=== PATIENT | female | born 1965 | race Hispanic/Latino ===

== ENCOUNTER 2021-04-20 06:49 | Emergency (ER) | payer MEDICARE, OTHER ==
[2021-04-20] MEDS ORDERED: Ondansetron PF 4 MG/2 ML Vial ONE (07:44)
[2021-04-20] MEDS ORDERED: Morphine 4 MG/ML VIAL ONE ×2 (07:44)
[2021-04-20 07:51] LABS: #Eosinphils 0.4 thou/uL (0.0-0.7); #Lymphocytes 1.4 thou/uL (1.20-3.40); #Monocytes 0.4 thou/uL (0.11-0.59); #Neutrophils 3.7 thou/uL (1.40-6.50); %Basophils 0.7 % (0.0-1.0); %Monocytes 6.8 % (0.0-10.0); %Neutrophils 61.5 % (42.0-75.0); Hemoglobin 10.7 g/dL (12.0-16.0); Mean Corpuscular HGB CONC 32.8 g/dL (32.0-36.0); Mean Corpuscular Hemoglobin 32.6 pg (27.0-31.0); Mean Corpuscular Volume 99.1 fL (78.0-98.0); Mean Platelet Volume 7.1 fL (7.4-10.4); Platelet Count 259 thou/uL (130-400); RBC Distribution Width 13.7 % (11.5-14.5)
[2021-04-20 08:12] LABS: ALT (SGPT) 13 U/L (8-55); AST (SGOT) 22 U/L (5-34); Albumin 3.3 g/dL (3.5-5.0); Alkaline Phosphatase 370 U/L (40-110); Anion Gap 15 mmol/L (10-20); BUN (Urea Nitrogen) 20 mg/dL (9.8-20.1); Bilirubin, Total 0.9 mg/dL (0.2-1.2); Calc. Creatinine Clearance 0 mL/min (70-130); Carbon Dioxide 29 mmol/L (22-29); Chloride 95 mmol/L (98-107); Globulin 5.8 g/dL (2.4-3.5); Glucose 216 mg/dL (70-105); Magnesium 2.3 mg/dL (1.6-2.6); Phosphorus 6.3 mg/dL (2.3-4.7); Potassium 4.2 mmol/L (3.5-5.1); Protein, Total 9.1 g/dL (6.0-8.3); Sodium 135 mmol/L (136-145)
== END 2021-04-20 09:09 | disposition home or self-care (01) ==
LOC: ERS 06:49
DX: B00.9 Herpesviral infection, unspecified (principal); E11.9 Type 2 diabetes mellitus without complications; I12.0 Hypertensive chronic kidney disease with stage 5 chronic kidney disease or end stage renal disease; N18.6 End stage renal disease; Z99.2 Dependence on renal dialysis; E78.00 Pure hypercholesterolemia, unspecified; Z79.899 Other long term (current) drug therapy
CPT/HCPCS: 71045; 80053; 83735; 84100; 85025; 96374; 96375; J2270; J2405

== ENCOUNTER 2021-04-26 23:55 | Inpatient (IN) | payer MEDICARE, MEDICAID ==
[2021-04-27 02:13] LABS: Troponin I Less than 0.010 ng/mL (< 0.028)
[2021-04-27] MEDS ORDERED: Dextrose 5% in Water 1,000 ML IV PRN (05:27)
[2021-04-27] MEDS ORDERED: Dextrose 50% Abboject 50 ML SYRINGE SLOW IVP PRN (05:27)
[2021-04-27 05:43] LABS: Troponin I 0.012 ng/mL (< 0.028)
[2021-04-27] MEDS ORDERED: Labetalol HCl 100 MG/20 ML VIAL ONE (05:44)
[2021-04-27] MEDS ORDERED: Labetalol HCl 100 MG/20 ML VIAL SLOW IVP SCH (05:45)
[2021-04-27] MEDS ORDERED: Acetaminophen 325 MG TAB PO PRN (05:56)
[2021-04-27 07:02] LABS: Free T4 (Free Thyroxine) 0.94 ng/dL (0.70-1.48)
[2021-04-27] MEDS: Lidocaine 5% Patch TD SCH (08:52)
[2021-04-27] MEDS ORDERED: Amlodipine 5 MG TAB ONE (10:49)
[2021-04-27] MEDS ORDERED: Amlodipine 10 MG TAB PO SCH (11:15)
[2021-04-27] MEDS ORDERED: Carvedilol 6.25 MG TAB PO SCH (11:15)
[2021-04-27 12:53] LABS: SARS-CoV-2 PCR by NAA Not Detected (NotDetected)
[2021-04-27] MEDS: Gabapentin 100 MG CAP PO SCH ×2 (16:13→20:50)
[2021-04-27] MEDS: hydrALAZINE 25 MG TAB PO SCH ×2 (16:34→20:50)
[2021-04-27 16:42] LABS: Hemoglobin A1c 5.8 % (4.0-6.0)
[2021-04-27 17:35] LABS: Vitamin D, 25 Hydroxy 6.4 ng/ml (> 30.0)
[2021-04-27] MEDS: hydrALAZINE 20 MG/ML VIAL SLOW IVP PRN (20:45)
[2021-04-27] MEDS: Carvedilol 6.25 MG TAB PO SCH (20:49)
[2021-04-27] MEDS: Transdermal Patch Removal TOP SCH (20:50)
[2021-04-28] MEDS: hydrALAZINE 20 MG/ML VIAL SLOW IVP PRN ×2 (00:18→08:32)
[2021-04-28 05:33] LABS: Cardiac Risk 4.1 (Less than 4.5)
[2021-04-28] MEDS ORDERED: Dextrose 5% in Water 1,000 ML IV SCH (06:30)
[2021-04-28] MEDS: Lidocaine 5% Patch TD SCH (08:32)
[2021-04-28] MEDS ORDERED: Prevnar 13-Val Conj/PF 0.5 ML SYRINGE IM ONE (09:00)
[2021-04-28] MEDS ORDERED: Dextrose 50% Abboject 50 ML SYRINGE SLOW IVP PRN (09:01)
[2021-04-28] MEDS ORDERED: Dextrose 5% in Water 1,000 ML IV PRN (09:01)
[2021-04-28] MEDS ORDERED: HumaLOG 300 UNITS/3 ML VIAL SC PRN (09:01)
[2021-04-28] MEDS: Carvedilol 6.25 MG TAB PO SCH ×2 (10:53→21:25)
[2021-04-28] MEDS: Amlodipine 10 MG TAB PO SCH (10:53)
[2021-04-28] MEDS: Sevelamer Carbonate 800 MG TAB PO SCH ×2 (10:53→16:19)
[2021-04-28] MEDS: hydrALAZINE 25 MG TAB PO SCH ×3 (10:53→21:25)
[2021-04-28] MEDS: ALPRAZolam 0.5 MG TAB PO PRN (10:53)
[2021-04-28] MEDS: Gabapentin 100 MG CAP PO SCH ×3 (10:54→21:26)
[2021-04-28] MEDS ORDERED: hydrALAZINE 25 MG TAB PO SCH ×2 (13:00→15:00)
[2021-04-28] MEDS ORDERED: NIFEdipine XL 60 MG TAB PO SCH (21:00)
[2021-04-28] MEDS: Transdermal Patch Removal TOP SCH (21:26)
[2021-04-29 11:20] LABS: #Basophils 0.1 thou/uL (0.0-0.2); #Eosinphils 0.3 thou/uL (0.0-0.7); #Lymphocytes 1.4 thou/uL (1.20-3.40); #Monocytes 0.4 thou/uL (0.11-0.59); #Neutrophils 2.9 thou/uL (1.40-6.50); %Basophils 1.2 % (0.0-1.0); %Eosinophils 6.7 % (0.0-10.0); %Lymphocytes 27.4 % (21.0-51.0); %Monocytes 6.9 % (0.0-10.0); %Neutrophils 57.8 % (42.0-75.0); Hemoglobin 10.3 g/dL (12.0-16.0); Mean Corpuscular Hemoglobin 31.6 pg (27.0-31.0); Mean Corpuscular Volume 98.8 fL (78.0-98.0); Mean Platelet Volume 7.1 fL (7.4-10.4); Platelet Count 217 thou/uL (130-400); RBC Distribution Width 15.2 % (11.5-14.5); Red Blood Cell (RBC) Count 3.27 mill/uL (4.20-5.40); White Blood Cell (WBC) Count 5.1 thou/uL (4.8-10.8)
[2021-04-29 11:27] LABS: Anion Gap 15 mmol/L (10-20); BUN (Urea Nitrogen) 8 mg/dL (9.8-20.1); Calc. Creatinine Clearance 24 mL/min (70-130); Calcium 8.8 mg/dL (7.8-10.44); Carbon Dioxide 27 mmol/L (22-29); Chloride 100 mmol/L (98-107); Glucose 88 mg/dL (70-105); Potassium 3.4 mmol/L (3.5-5.1); Sodium 139 mmol/L (136-145)
[2021-04-29] MEDS: HYDROcodone/Acetaminophen 5/325 mg Tablet PO PRN ×2 (11:37→18:53)
[2021-04-29] MEDS: Sevelamer Carbonate 800 MG TAB PO SCH ×3 (12:58→17:05)
[2021-04-29] MEDS: hydrALAZINE 25 MG TAB PO SCH ×3 (12:58→21:09)
[2021-04-29] MEDS: Gabapentin 100 MG CAP PO SCH (13:05)
[2021-04-29] MEDS: Amlodipine 10 MG TAB PO SCH (13:08)
[2021-04-29] MEDS: valACYclovir 500 MG TAB PO SCH ×2 (13:09→21:10)
[2021-04-29] MEDS: NIFEdipine XL 60 MG TAB PO SCH (13:09)
[2021-04-29] MEDS: Carvedilol 6.25 MG TAB PO SCH ×2 (13:09→21:10)
[2021-04-29] MEDS: Lidocaine 5% Patch TD SCH (13:11)
[2021-04-29] MEDS: Rifaximin 550 MG TAB PO SCH ×2 (15:33→21:10)
[2021-04-29] MEDS: Gabapentin 300 MG CAP PO SCH ×2 (15:33→21:10)
[2021-04-29] MEDS: ALPRAZolam 0.5 MG TAB PO PRN (21:11)
[2021-04-29] MEDS: Transdermal Patch Removal TOP SCH (21:16)
[2021-04-30] MEDS: HYDROcodone/Acetaminophen 5/325 mg Tablet PO PRN ×2 (01:05→20:45)
[2021-04-30] MEDS: valACYclovir 500 MG TAB PO SCH ×3 (04:10→20:43)
[2021-04-30] MEDS: Sevelamer Carbonate 800 MG TAB PO SCH ×3 (09:42→18:43)
[2021-04-30] MEDS: hydrALAZINE 25 MG TAB PO SCH ×4 (09:42→20:44)
[2021-04-30] MEDS: Losartan 25 MG TAB PO SCH ×2 (09:42→10:52)
[2021-04-30] MEDS: Carvedilol 6.25 MG TAB PO SCH ×3 (09:43→20:43)
[2021-04-30] MEDS: Furosemide 80 MG TAB PO SCH ×2 (09:43→10:51)
[2021-04-30] MEDS: Rifaximin 550 MG TAB PO SCH ×3 (09:44→20:45)
[2021-04-30] MEDS: Gabapentin 300 MG CAP PO SCH (09:44)
[2021-04-30] MEDS: NIFEdipine XL 60 MG TAB PO SCH ×2 (09:45→10:52)
[2021-04-30] MEDS: Amlodipine 10 MG TAB PO SCH ×2 (09:45→10:50)
[2021-04-30] MEDS: Lidocaine 5% Patch TD SCH (10:00)
[2021-04-30] MEDS ORDERED: Folic Acid 1 MG TAB PO SCH (19:30)
[2021-04-30] MEDS: Transdermal Patch Removal TOP SCH (20:45)
[2021-04-30] MEDS: ALPRAZolam 0.5 MG TAB PO PRN (20:45)
[2021-05-01] MEDS: valACYclovir 500 MG TAB PO SCH ×3 (04:43→21:38)
[2021-05-01 06:35] LABS: Anion Gap 17 mmol/L (10-20); BUN (Urea Nitrogen) 26 mg/dL (9.8-20.1); Calc. Creatinine Clearance 13 mL/min (70-130); Calcium 8.3 mg/dL (7.8-10.44); Carbon Dioxide 22 mmol/L (22-29); Chloride 98 mmol/L (98-107); Glucose 178 mg/dL (70-105); Potassium 4.4 mmol/L (3.5-5.1); Sodium 133 mmol/L (136-145)
[2021-05-01] MEDS: hydrALAZINE 25 MG TAB PO SCH (09:41)
[2021-05-01] MEDS: Carvedilol 6.25 MG TAB PO SCH (09:41)
[2021-05-01] MEDS: Rifaximin 550 MG TAB PO SCH ×3 (10:12→20:07)
[2021-05-01] MEDS: Lidocaine 5% Patch TD SCH (10:13)
[2021-05-01] MEDS: Sevelamer Carbonate 800 MG TAB PO SCH ×3 (10:13→18:30)
[2021-05-01] MEDS: Folic Acid 1 MG TAB PO SCH (10:13)
[2021-05-01 12:01] LABS: Hemoglobin 10.4 g/dL (12.0-16.0); Mean Corpuscular HGB CONC 33.6 g/dL (32.0-36.0); Mean Corpuscular Hemoglobin 32.9 pg (27.0-31.0); Mean Corpuscular Volume 97.8 fL (78.0-98.0); Mean Platelet Volume 7.1 fL (7.4-10.4); Platelet Count 267 thou/uL (130-400); RBC Distribution Width 15.5 % (11.5-14.5); Red Blood Cell (RBC) Count 3.16 mill/uL (4.20-5.40); White Blood Cell (WBC) Count 6.1 thou/uL (4.8-10.8)
[2021-05-01] MEDS: HYDROcodone/Acetaminophen 5/325 mg Tablet PO PRN (18:20)
[2021-05-01] MEDS: Transdermal Patch Removal TOP SCH (20:11)
[2021-05-01] MEDS: hydrALAZINE 20 MG/ML VIAL SLOW IVP PRN (20:14)
[2021-05-01] MEDS ORDERED: Morphine 2 MG/ML VIAL SLOW IVP SCH (22:15)
[2021-05-02 05:54] LABS: Anion Gap 13 mmol/L (10-20); BUN (Urea Nitrogen) 36 mg/dL (9.8-20.1); Calc. Creatinine Clearance 11 mL/min (70-130); Calcium 8.7 mg/dL (7.8-10.44); Carbon Dioxide 25 mmol/L (22-29); Chloride 100 mmol/L (98-107); Glucose 114 mg/dL (70-105); Potassium 4.8 mmol/L (3.5-5.1); Sodium 133 mmol/L (136-145)
[2021-05-02] MEDS: valACYclovir 500 MG TAB PO SCH ×3 (06:15→21:44)
[2021-05-02] MEDS: HYDROcodone/Acetaminophen 5/325 mg Tablet PO PRN ×2 (06:17→21:44)
[2021-05-02] MEDS: Folic Acid 1 MG TAB PO SCH (08:01)
[2021-05-02] MEDS: Sevelamer Carbonate 800 MG TAB PO SCH ×3 (08:01→20:03)
[2021-05-02] MEDS: Rifaximin 550 MG TAB PO SCH ×3 (08:01→21:44)
[2021-05-02] MEDS: Lidocaine 5% Patch TD SCH (08:04)
[2021-05-02] MEDS: hydrALAZINE 20 MG/ML VIAL SLOW IVP PRN ×3 (11:51→21:29)
[2021-05-02] MEDS ORDERED: Aspirin 325 MG TAB PO SCH (14:15)
[2021-05-02] MEDS: Atorvastatin Calcium 20 MG TAB PO SCH (21:44)
[2021-05-02] MEDS: Transdermal Patch Removal TOP SCH (21:45)
[2021-05-03] MEDS ORDERED: Morphine 2 MG/ML VIAL SLOW IVP SCH (00:15)
[2021-05-03] MEDS: hydrALAZINE 20 MG/ML VIAL SLOW IVP PRN ×4 (01:43→18:48)
[2021-05-03] MEDS: diphenhydrAMINE 25 MG CAP PO PRN ×2 (02:52→16:30)
[2021-05-03] MEDS ORDERED: Labetalol HCl 100 MG/20 ML VIAL ONE (05:52)
[2021-05-03] MEDS: Morphine 2 MG/ML VIAL SLOW IVP PRN ×2 (07:03→13:44)
[2021-05-03] MEDS ORDERED: hydrALAZINE 25 MG TAB PO SCH (09:00)
[2021-05-03] MEDS: Folic Acid 1 MG TAB PO SCH (09:45)
[2021-05-03] MEDS: Aspirin 81 mg Enteric Coated Tablet PO SCH (09:45)
[2021-05-03] MEDS: Rifaximin 550 MG TAB PO SCH ×3 (09:45→20:02)
[2021-05-03] MEDS: Lidocaine 5% Patch TD SCH (09:46)
[2021-05-03] MEDS: valACYclovir 500 MG TAB PO SCH (09:46)
[2021-05-03] MEDS: Sevelamer Carbonate 800 MG TAB PO SCH ×3 (09:54→16:23)
[2021-05-03] MEDS ORDERED: NIFEdipine XL 60 MG TAB PO SCH (13:00)
[2021-05-03] MEDS ORDERED: Pregabalin 75 MG CAP PO SCH (14:15)
[2021-05-03] MEDS ORDERED: Pregabalin 25 MG CAP PO SCH (14:45)
[2021-05-03] MEDS: hydrALAZINE 25 MG TAB PO SCH ×2 (14:57→20:01)
[2021-05-03] MEDS ORDERED: Labetalol HCl 100 MG/20 ML VIAL SLOW IVP PRN (15:34)
[2021-05-03] MEDS ORDERED: Carvedilol 3.125 MG TAB PO SCH (17:30)
[2021-05-03] MEDS: Atorvastatin Calcium 20 MG TAB PO SCH (20:01)
[2021-05-03] MEDS: Pregabalin 25 MG CAP PO SCH (20:02)
[2021-05-03] MEDS: Transdermal Patch Removal TOP SCH (20:03)
[2021-05-03] MEDS: Fentanyl 100 MCG/2 ML VIAL SLOW IVP PRN (20:05)
[2021-05-04] MEDS: Fentanyl 100 MCG/2 ML VIAL SLOW IVP PRN ×3 (07:32→20:06)
[2021-05-04] MEDS: Lidocaine 5% Patch TD SCH (07:32)
[2021-05-04] MEDS: Rifaximin 550 MG TAB PO SCH ×3 (07:58→20:06)
[2021-05-04] MEDS: hydrALAZINE 25 MG TAB PO SCH ×3 (07:58→20:06)
[2021-05-04] MEDS: Pregabalin 25 MG CAP PO SCH (07:58)
[2021-05-04] MEDS: Carvedilol 3.125 MG TAB PO SCH ×2 (07:58→20:06)
[2021-05-04] MEDS: Sevelamer Carbonate 800 MG TAB PO SCH ×3 (07:58→15:53)
[2021-05-04 09:00] LABS: Hemoglobin 9.7 g/dL (12.0-16.0); Mean Corpuscular HGB CONC 34.2 g/dL (32.0-36.0); Mean Corpuscular Hemoglobin 33.5 pg (27.0-31.0); Mean Corpuscular Volume 97.9 fL (78.0-98.0); Mean Platelet Volume 6.5 fL (7.4-10.4); Platelet Count 243 thou/uL (130-400); RBC Distribution Width 16.4 % (11.5-14.5); Red Blood Cell (RBC) Count 2.89 mill/uL (4.20-5.40); White Blood Cell (WBC) Count 5.4 thou/uL (4.8-10.8)
[2021-05-04] MEDS ORDERED: valACYclovir 500 MG TAB PO SCH ×2 (09:00→10:40)
[2021-05-04 09:28] LABS: ALT (SGPT) 11 U/L (8-55); AST (SGOT) 19 U/L (5-34); Albumin 2.9 g/dL (3.5-5.0); Alkaline Phosphatase 154 U/L (40-110); Anion Gap 14 mmol/L (10-20); BUN (Urea Nitrogen) 15 mg/dL (9.8-20.1); Bilirubin, Total 0.7 mg/dL (0.2-1.2); Calc. Creatinine Clearance 19 mL/min (70-130); Calcium 8.6 mg/dL (7.8-10.44); Carbon Dioxide 25 mmol/L (22-29); Chloride 99 mmol/L (98-107); Globulin 4.8 g/dL (2.4-3.5); Glucose 102 mg/dL (70-105); Potassium 3.7 mmol/L (3.5-5.1); Protein, Total 7.7 g/dL (6.0-8.3); Sodium 134 mmol/L (136-145)
[2021-05-04] MEDS: Aspirin 81 mg Enteric Coated Tablet PO SCH (12:33)
[2021-05-04] MEDS: NIFEdipine XL 60 MG TAB PO SCH (12:33)
[2021-05-04] MEDS: Folic Acid 1 MG TAB PO SCH (12:33)
[2021-05-04] MEDS: HYDROcodone/Acetaminophen 5/325 mg Tablet PO PRN (12:34)
[2021-05-04] MEDS ORDERED: Pregabalin 25 MG CAP PO SCH (13:30)
[2021-05-04] MEDS: hydrALAZINE 20 MG/ML VIAL SLOW IVP PRN (17:02)
[2021-05-04] MEDS: valACYclovir 500 MG TAB PO SCH (19:57)
[2021-05-04] MEDS: Atorvastatin Calcium 20 MG TAB PO SCH (20:06)
[2021-05-04] MEDS: Transdermal Patch Removal TOP SCH (20:25)
[2021-05-05] MEDS: valACYclovir 500 MG TAB PO SCH ×2 (04:53→11:16)
[2021-05-05] MEDS: Fentanyl 100 MCG/2 ML VIAL SLOW IVP PRN (04:59)
[2021-05-05 05:09] VITALS: BMI 272084.6
[2021-05-05] MEDS: Folic Acid 1 MG TAB PO SCH (08:01)
[2021-05-05] MEDS: NIFEdipine XL 60 MG TAB PO SCH (08:01)
[2021-05-05] MEDS: hydrALAZINE 25 MG TAB PO SCH ×2 (08:01→14:42)
[2021-05-05] MEDS: Aspirin 81 mg Enteric Coated Tablet PO SCH (08:01)
[2021-05-05] MEDS: Carvedilol 3.125 MG TAB PO SCH (08:01)
[2021-05-05] MEDS: Sevelamer Carbonate 800 MG TAB PO SCH ×2 (08:02→11:15)
[2021-05-05] MEDS: Rifaximin 550 MG TAB PO SCH ×2 (08:02→14:43)
[2021-05-05] MEDS ORDERED: Lidocaine 5% Patch TD SCH (09:00)
[2021-05-05] MEDS ORDERED: Pregabalin 50 MG CAP PO SCH (09:00)
[2021-05-05] MEDS: diphenhydrAMINE 25 MG CAP PO PRN (11:15)
[2021-05-05] MEDS: HYDROcodone/Acetaminophen 5/325 mg Tablet PO PRN (11:16)
[2021-05-05 14:42] VITALS: BP 118/51; TEMP 97.3
[2021-05-07] MEDS ORDERED: Ergocalciferol 1.25 MG(50,000 UNITS) CAP PO SCH (09:00)
== END 2021-05-05 16:28 | disposition home or self-care (01) | DRG 91 ==
LOC: ERS 23:55 → ERHOLD 04-27 00:55 → 2NO 04-27 15:32 → OBSVTOIN 04-29 11:58 → T4-A 04-29 14:21
PROVIDERS: ADMIT Internal Medicine; ATTEND Internal Medicine
PROC: 5A1D70Z Performance of Urinary Filtration, Intermittent, Less than 6 Hours Per Day (ICD-10-PCS; principal; 2021-05-02)
DX: G92 Toxic encephalopathy (principal); N18.6 End stage renal disease; I12.0 Hypertensive chronic kidney disease with stage 5 chronic kidney disease or end stage renal disease; E87.1 Hypo-osmolality and hyponatremia; B02.29 Other postherpetic nervous system involvement; G45.9 Transient cerebral ischemic attack, unspecified; E11.22 Type 2 diabetes mellitus with diabetic chronic kidney disease; E78.5 Hyperlipidemia, unspecified; B02.9 Zoster without complications; D52.9 Folate deficiency anemia, unspecified; R53.1 Weakness; T42.6X5A Adverse effect of other antiepileptic and sedative-hypnotic drugs, initial encounter; M48.02 Spinal stenosis, cervical region; M47.812 Spondylosis without myelopathy or radiculopathy, cervical region; R20.0 Anesthesia of skin; Z20.822 Contact with and (suspected) exposure to COVID-19; I16.0 Hypertensive urgency; E55.9 Vitamin D deficiency, unspecified; Z79.4 Long term (current) use of insulin; Z79.899 Other long term (current) drug therapy; Z99.2 Dependence on renal dialysis; Z98.51 Tubal ligation status; Z90.49 Acquired absence of other specified parts of digestive tract; Z98.42 Cataract extraction status, left eye; Z98.41 Cataract extraction status, right eye; Z98.890 Other specified postprocedural states
CPT/HCPCS: 36415; 36416; 70450; 70551; 72141; 72148; 80048; 80053; 80061; 82274; 82306; 82607; 82746; 83036; 84439; 84443; 84481; 84484; 85025; 85027; 87324; 87449; 90935; 93306; 93880; 95712; 95819; 95957; 96374; 96375; 99285; G0257; G0378; J0360; J1815; J2270; J3010; Q0163; U0003; U0005

== ENCOUNTER 2021-11-10 14:42 | Inpatient (IN) | payer MEDICARE, MEDICAID ==
[2021-11-10 16:11] LABS: Hemoglobin 13.7 g/dL (12.0-16.0); Mean Corpuscular HGB CONC 33.3 g/dL (32.0-36.0); Mean Corpuscular Hemoglobin 33.4 pg (27.0-31.0); RBC Distribution Width 12.3 % (11.5-14.5); Red Blood Cell (RBC) Count 4.11 mill/uL (4.20-5.40); White Blood Cell (WBC) Count 3.2 thou/uL (4.8-10.8)
[2021-11-10 16:22] LABS: ALT (SGPT) 41 U/L (8-55); AST (SGOT) 56 U/L (5-34); Albumin 3.3 g/dL (3.5-5.0); Alkaline Phosphatase 413 U/L (40-110); Anion Gap 26 mmol/L (10-20); BUN (Urea Nitrogen) 87 mg/dL (9.8-20.1); Bilirubin, Total 0.8 mg/dL (0.2-1.2); Calc. Creatinine Clearance 0 mL/min (70-130); Calcium 8.2 mg/dL (7.8-10.44); Carbon Dioxide 11 mmol/L (22-29); Chloride 101 mmol/L (98-107); Globulin 5.5 g/dL (2.4-3.5); Glucose 118 mg/dL (70-105); Protein, Total 8.8 g/dL (6.0-8.3); Sodium 131 mmol/L (136-145)
[2021-11-10 16:34] LABS: Eosinophils 1 % (0-10); Lymphocytes 32 % (21-51); MDiff Complete? YES; Macrocytosis SLIGHT = 6-15 cells (100X) (0-5/hpf); Mean Platelet Volume 8.3 fL (7.4-10.4); Monocytes 14 % (0-10); Neutrophil 52 % (42-75); Ovalocytes SLIGHT = 2-5 cells (100X) (0-1/hpf); Platelet Count 98 thou/uL (130-400); Platelet Morphology Comment Appears Decreased; Polychromasia SLIGHT = 2-3 cells (100X) (0-2/hpf)
[2021-11-10 16:36] LABS: Potassium 6.8 mmol/L (3.5-5.1)
[2021-11-10] MEDS ORDERED: Sodium Bicarb 50 MEQ/50 ML Abboject 8.4% SYRINGE ONE (17:31)
[2021-11-10 19:49] LABS: HBSAg Index 0.42 S/CO (0-0.99); Hep B Core Total Ab Non-Reactive (NonReactive); Hep B Core Total Index 0.23 S/CO (0-0.79); Hep B Surf Ag Non-Reactive S/CO (NonReactive); Hep C IgG Ab Non-Reactive (NonReactive); Hep C Index 0.37 S/CO (0-0.79)
[2021-11-10 19:57] LABS: HBSAB Concentration 267.27 mIU/mL; Hep B Surf AB Reactive (NonReactive)
[2021-11-10] MEDS ORDERED: Diltiazem 125 MG/25 ML ONE (23:24)
[2021-11-10 23:58] LABS: Actual Bicarbonate (HCO3a) 22.4 mEq/L (22-28); Analyzer IN Cardio ER; Base Excess (BEa) 0.4 mEq/L (-2.0 to +3.0); Calcium, Ionized (arterial) 1.01 mmol/L (1.12-1.30); Carboxyhemoglobin (COHb) 0.1 gm% (0.0-3.0); Hemoglobin (Hb) 11.9 g/dL (12.0-16.0); O2 Tension (PaO2), arterial 88.8 mmHg (80.0-100.0); Potassium - ABG Lab 3.71 mmol/L (3.70-5.30); pH, Arterial 7.52 (7.35-7.45)
[2021-11-10 23:59] LABS: Puncture Site LRA
[2021-11-11] MEDS ORDERED: Magnesium 2 GM/50 ML BAG (IN WATER) ONE (00:19)
[2021-11-11] MEDS ORDERED: Ondansetron PF 4 MG/2 ML Vial IVP PRN (01:00)
[2021-11-11] MEDS ORDERED: HumaLOG 300 UNITS/3 ML VIAL SC PRN (01:04)
[2021-11-11] MEDS ORDERED: Dextrose 5% in Water 1,000 ML IV PRN (01:04)
[2021-11-11] MEDS ORDERED: Dextrose 50% Abboject 50 ML SYRINGE SLOW IVP PRN (01:04)
[2021-11-11] MEDS ORDERED: Loperamide HCl 1 MG/7.5 ML UDCUP PO PRN (01:05)
[2021-11-11] MEDS: Acetaminophen 325 MG TAB PO PRN ×2 (02:05→15:07)
[2021-11-11] MEDS: hydrALAZINE 20 MG/ML VIAL SLOW IVP PRN ×3 (02:06→21:33)
[2021-11-11 02:13] VITALS: BMI 26.0
[2021-11-11 03:07] LABS: Anion Gap 19 mmol/L (10-20); BUN (Urea Nitrogen) 32 mg/dL (9.8-20.1); Calc. Creatinine Clearance 11 mL/min (70-130); Calcium 8.6 mg/dL (7.8-10.44); Carbon Dioxide 25 mmol/L (22-29); Chloride 96 mmol/L (98-107); Glucose 75 mg/dL (70-105); Magnesium 2.2 mg/dL (1.6-2.6); Potassium 4.3 mmol/L (3.5-5.1); Sodium 136 mmol/L (136-145)
[2021-11-11 03:19] LABS: Band 15 % (5-11); Eosinophils 3 % (0-10); Hemoglobin 11.3 g/dL (12.0-16.0); Lymphocytes 17 % (21-51); MDiff Complete? YES; Mean Corpuscular HGB CONC 32.5 g/dL (32.0-36.0); Mean Corpuscular Hemoglobin 31.6 pg (27.0-31.0); Mean Corpuscular Volume 97.3 fL (78.0-98.0); Mean Platelet Volume 7.6 fL (7.4-10.4); Monocytes 11 % (0-10); Neutrophil 54 % (42-75); Platelet Count 166 thou/uL (130-400); RBC Distribution Width 12.2 % (11.5-14.5); Red Blood Cell (RBC) Count 3.57 mill/uL (4.20-5.40); White Blood Cell (WBC) Count 3.7 thou/uL (4.8-10.8)
[2021-11-11] MEDS ORDERED: HYDROcodone/Acetaminophen 5/325 mg Tablet PO PRN (08:20)
[2021-11-11] MEDS ORDERED: Ergocalciferol 1.25 MG(50,000 UNITS) CAP PO SCH ×2 (09:00)
[2021-11-11] MEDS ORDERED: Non-Formulary Item 1 EACH (Hydralazine Hcl [Hydralazine Hcl] 50 MG Tablet) PO SCH (09:00)
[2021-11-11] MEDS ORDERED: Heparin 5,000 UNITS/ML VIAL SC SCH (09:00)
[2021-11-11] MEDS: Aspirin 81 mg Enteric Coated Tablet PO SCH (09:27)
[2021-11-11] MEDS: Folic Acid 1 MG TAB PO SCH (09:27)
[2021-11-11] MEDS: Carvedilol 3.125 MG TAB PO SCH ×2 (09:27→20:12)
[2021-11-11] MEDS: Pregabalin 50 MG CAP PO SCH ×2 (09:27→20:10)
[2021-11-11] MEDS: hydrALAZINE 25 MG TAB PO SCH ×3 (09:27→20:11)
[2021-11-11] MEDS: Sevelamer Carbonate 800 MG TAB PO SCH ×2 (11:47→16:22)
[2021-11-11] MEDS: HumaLOG 300 UNITS/3 ML VIAL SC PRN ×2 (11:47→16:52)
[2021-11-11] MEDS ORDERED: SEVELAMER HCL 800 MG PO SCH (12:00)
[2021-11-11] MEDS: Atorvastatin Calcium 20 MG TAB PO SCH (20:11)
[2021-11-12 06:28] LABS: Hemoglobin 10.5 g/dL (12.0-16.0); Mean Corpuscular Hemoglobin 32.2 pg (27.0-31.0); Mean Corpuscular Volume 97.6 fL (78.0-98.0); Mean Platelet Volume 7.9 fL (7.4-10.4); Platelet Count 139 thou/uL (130-400); Red Blood Cell (RBC) Count 3.28 mill/uL (4.20-5.40); White Blood Cell (WBC) Count 2.6 thou/uL (4.8-10.8)
[2021-11-12 06:44] LABS: Anion Gap 18 mmol/L (10-20); BUN (Urea Nitrogen) 50 mg/dL (9.8-20.1); Calc. Creatinine Clearance 9 mL/min (70-130); Calcium 8.2 mg/dL (7.8-10.44); Carbon Dioxide 23 mmol/L (22-29); Chloride 95 mmol/L (98-107); Glucose 97 mg/dL (70-105); Magnesium 2.3 mg/dL (1.6-2.6); Potassium 4.9 mmol/L (3.5-5.1); Sodium 131 mmol/L (136-145)
[2021-11-12 06:47] LABS: Band 9 % (5-11); Elliptocytes SLIGHT = 2-5 cells (100X) (0-1/hpf); Eosinophils 2 % (0-10); Lymphocytes 44 % (21-51); MDiff Complete? YES; Monocytes 8 % (0-10); Neutrophil 37 % (42-75)
[2021-11-12] MEDS: Sevelamer Carbonate 800 MG TAB PO SCH ×3 (08:10→17:20)
[2021-11-12] MEDS: Aspirin 81 mg Enteric Coated Tablet PO SCH (08:10)
[2021-11-12] MEDS: Folic Acid 1 MG TAB PO SCH (08:11)
[2021-11-12] MEDS: Pregabalin 50 MG CAP PO SCH ×2 (08:11→21:51)
[2021-11-12] MEDS: Carvedilol 3.125 MG TAB PO SCH ×2 (08:11→21:51)
[2021-11-12] MEDS: hydrALAZINE 25 MG TAB PO SCH ×3 (08:11→21:51)
[2021-11-12] MEDS: hydrALAZINE 20 MG/ML VIAL SLOW IVP PRN (17:23)
[2021-11-12] MEDS: Atorvastatin Calcium 20 MG TAB PO SCH (21:51)
[2021-11-13] MEDS: Acetaminophen 325 MG TAB PO PRN ×2 (00:19→20:18)
[2021-11-13] MEDS: Pregabalin 50 MG CAP PO SCH ×2 (08:13→20:00)
[2021-11-13] MEDS: Folic Acid 1 MG TAB PO SCH (08:14)
[2021-11-13] MEDS: Sevelamer Carbonate 800 MG TAB PO SCH ×3 (08:14→15:35)
[2021-11-13] MEDS: hydrALAZINE 25 MG TAB PO SCH ×3 (08:14→20:07)
[2021-11-13] MEDS: Aspirin 81 mg Enteric Coated Tablet PO SCH (08:14)
[2021-11-13] MEDS: Carvedilol 3.125 MG TAB PO SCH ×2 (08:14→20:07)
[2021-11-13 14:49] LABS: #Eosinphils 0.2 thou/uL (0.0-0.7); #Monocytes 0.3 thou/uL (0.11-0.59); #Neutrophils 1.5 thou/uL (1.40-6.50); %Basophils 0.4 % (0.0-1.0); %Eosinophils 5.6 % (0.0-10.0); %Lymphocytes 34.8 % (21.0-51.0); %Monocytes 9.2 % (0.0-10.0); %Neutrophils 50.1 % (42.0-75.0); Hemoglobin 11.6 g/dL (12.0-16.0); Mean Corpuscular HGB CONC 32.7 g/dL (32.0-36.0); Mean Corpuscular Hemoglobin 31.8 pg (27.0-31.0); Mean Corpuscular Volume 97.3 fL (78.0-98.0); Mean Platelet Volume 7.8 fL (7.4-10.4); Platelet Count 171 thou/uL (130-400); RBC Distribution Width 12.2 % (11.5-14.5); Red Blood Cell (RBC) Count 3.66 mill/uL (4.20-5.40)
[2021-11-13 15:10] LABS: Anion Gap 19 mmol/L (10-20); BUN (Urea Nitrogen) 35 mg/dL (9.8-20.1); Calc. Creatinine Clearance 11 mL/min (70-130); Calcium 8.6 mg/dL (7.8-10.44); Carbon Dioxide 25 mmol/L (22-29); Chloride 95 mmol/L (98-107); Glucose 221 mg/dL (70-105); Magnesium 2.3 mg/dL (1.6-2.6); Potassium 4.8 mmol/L (3.5-5.1); Sodium 134 mmol/L (136-145)
[2021-11-13] MEDS: HumaLOG 300 UNITS/3 ML VIAL SC PRN (15:35)
[2021-11-13] MEDS: Atorvastatin Calcium 20 MG TAB PO SCH (20:00)
[2021-11-14] MEDS ORDERED: Amlodipine 10 MG TAB PO SCH (10:00)
[2021-11-14] MEDS ORDERED: hydrALAZINE 25 MG TAB PO SCH (10:30)
[2021-11-14 10:46] LABS: #Eosinphils 0.2 thou/uL (0.0-0.7); #Lymphocytes 1.5 thou/uL (1.20-3.40); #Monocytes 0.2 thou/uL (0.11-0.59); #Neutrophils 1.6 thou/uL (1.40-6.50); %Basophils 0.9 % (0.0-1.0); %Eosinophils 6.3 % (0.0-10.0); %Lymphocytes 42.8 % (21.0-51.0); %Monocytes 5.3 % (0.0-10.0); %Neutrophils 44.7 % (42.0-75.0); Hemoglobin 10.8 g/dL (12.0-16.0); Mean Corpuscular HGB CONC 32.5 g/dL (32.0-36.0); Mean Corpuscular Hemoglobin 31.7 pg (27.0-31.0); Mean Corpuscular Volume 97.6 fL (78.0-98.0); Mean Platelet Volume 7.7 fL (7.4-10.4); Platelet Count 147 thou/uL (130-400); RBC Distribution Width 12.2 % (11.5-14.5); Red Blood Cell (RBC) Count 3.39 mill/uL (4.20-5.40); White Blood Cell (WBC) Count 3.5 thou/uL (4.8-10.8)
[2021-11-14 11:05] LABS: Anion Gap 15 mmol/L (10-20); BUN (Urea Nitrogen) 30 mg/dL (9.8-20.1); CRP (Inflammatory) 0.95 mg/dL (= or < 0.5); Calc. Creatinine Clearance 15 mL/min (70-130); Calcium 8.2 mg/dL (7.8-10.44); Carbon Dioxide 26 mmol/L (22-29); Chloride 99 mmol/L (98-107); Glucose 87 mg/dL (70-105); Potassium 4.2 mmol/L (3.5-5.1); Sodium 136 mmol/L (136-145)
[2021-11-14] MEDS: Sevelamer Carbonate 800 MG TAB PO SCH ×3 (13:42→17:32)
[2021-11-14] MEDS: Aspirin 81 mg Enteric Coated Tablet PO SCH (13:43)
[2021-11-14] MEDS: Pregabalin 50 MG CAP PO SCH ×2 (13:43→20:54)
[2021-11-14] MEDS: Folic Acid 1 MG TAB PO SCH (13:43)
[2021-11-14] MEDS: Carvedilol 3.125 MG TAB PO SCH ×2 (13:44→20:54)
[2021-11-14] MEDS: hydrALAZINE 25 MG TAB PO SCH ×3 (13:44→20:54)
[2021-11-14] MEDS: HumaLOG 300 UNITS/3 ML VIAL SC PRN (17:31)
[2021-11-14] MEDS: Atorvastatin Calcium 20 MG TAB PO SCH (20:55)
[2021-11-15] MEDS ORDERED: Amlodipine 5 MG TAB PO SCH (09:00)
[2021-11-15] MEDS: Aspirin 81 mg Enteric Coated Tablet PO SCH (09:47)
[2021-11-15] MEDS: Pregabalin 50 MG CAP PO SCH ×2 (09:47→22:23)
[2021-11-15] MEDS: Sevelamer Carbonate 800 MG TAB PO SCH ×3 (09:47→16:44)
[2021-11-15] MEDS: Folic Acid 1 MG TAB PO SCH (09:47)
[2021-11-15] MEDS: Carvedilol 3.125 MG TAB PO SCH ×2 (09:48→22:23)
[2021-11-15] MEDS: hydrALAZINE 25 MG TAB PO SCH ×3 (09:48→22:24)
[2021-11-15] MEDS ORDERED: NIFEdipine XL 60 MG TAB PO SCH ×2 (10:23→10:30)
[2021-11-15] MEDS: HumaLOG 300 UNITS/3 ML VIAL SC PRN (12:43)
[2021-11-15] MEDS ORDERED: NIFEdipine XL 30 MG TAB PO SCH (17:45)
[2021-11-15] MEDS: Acetaminophen 325 MG TAB PO PRN (17:58)
[2021-11-15] MEDS ORDERED: Melatonin 3 MG TAB PO SCH (22:17)
[2021-11-15] MEDS: Atorvastatin Calcium 20 MG TAB PO SCH (22:24)
[2021-11-16] MEDS: Acetaminophen 325 MG TAB PO PRN (05:18)
[2021-11-16] MEDS ORDERED: NIFEdipine XL 90 MG TAB PO SCH (09:00)
[2021-11-16] MEDS ORDERED: NIFEdipine XL 60 MG TAB PO SCH (09:00)
[2021-11-16] MEDS: Aspirin 81 mg Enteric Coated Tablet PO SCH (10:20)
[2021-11-16] MEDS: Pregabalin 50 MG CAP PO SCH (10:20)
[2021-11-16] MEDS: Sevelamer Carbonate 800 MG TAB PO SCH ×3 (10:21→18:32)
[2021-11-16] MEDS: Folic Acid 1 MG TAB PO SCH (10:21)
[2021-11-16] MEDS ORDERED: Sevelamer Carbonate 800 MG TAB ONE (13:43)
[2021-11-16] MEDS: hydrALAZINE 25 MG TAB PO SCH ×2 (16:53→19:31)
[2021-11-16] MEDS: Carvedilol 3.125 MG TAB PO SCH (16:53)
[2021-11-16] MEDS: HumaLOG 300 UNITS/3 ML VIAL SC PRN (18:26)
[2021-11-16 19:34] VITALS: BP 142/81; TEMP 98.5
== END 2021-11-16 19:07 | disposition home or self-care (01) | DRG 640 ==
LOC: ERS 14:42 → IMCU/EMU 11-11 00:30 → T4-B 11-12 07:55
PROVIDERS: ADMIT Internal Medicine; ATTEND Family Medicine
PROC: 5A1D70Z Performance of Urinary Filtration, Intermittent, Less than 6 Hours Per Day (ICD-10-PCS; principal; 2021-11-11)
PROC: 8E0ZXY6 Isolation (ICD-10-PCS; 2021-11-11)
DX: E87.5 Hyperkalemia (principal); N18.6 End stage renal disease; U07.1 COVID-19; I50.32 Chronic diastolic (congestive) heart failure; I13.2 Hypertensive heart and chronic kidney disease with heart failure and with stage 5 chronic kidney disease, or end stage renal disease; D63.1 Anemia in chronic kidney disease; E87.2 Acidosis; I48.91 Unspecified atrial fibrillation; E11.22 Type 2 diabetes mellitus with diabetic chronic kidney disease; R19.7 Diarrhea, unspecified; E78.00 Pure hypercholesterolemia, unspecified; D69.59 Other secondary thrombocytopenia; I16.0 Hypertensive urgency; Z90.49 Acquired absence of other specified parts of digestive tract; Z99.2 Dependence on renal dialysis; Z98.51 Tubal ligation status; Z87.891 Personal history of nicotine dependence
CPT/HCPCS: 36415; 36416; 36600; 80048; 80053; 82805; 83735; 85025; 86140; 86704; 86706; 86803; 87340; 90935; 93005; 93306; G0257; J0360; J1815; J3475

== ENCOUNTER 2022-03-20 01:59 | Emergency (ER) | payer OTHER | END 2022-03-20 03:16 | disposition home or self-care (01) | LOC: ERS 01:59 | DX: I12.0 Hypertensive chronic kidney disease with stage 5 chronic kidney disease or end stage renal disease (principal); E11.22 Type 2 diabetes mellitus with diabetic chronic kidney disease; N18.6 End stage renal disease; R06.02 Shortness of breath; E78.00 Pure hypercholesterolemia, unspecified; Z79.899 Other long term (current) drug therapy; Z99.2 Dependence on renal dialysis | CPT/HCPCS: 71045 ==